=== PATIENT | male | born 1970 | race Caucasian/White ===

== ENCOUNTER 2017-10-05 14:26 | Emergency (ER) | payer SELFPAY ==
[~2017-10-05] VITALS: Ht 167.6 cm; Wt 77.4 kg
[2017-10-05 15:15] VITALS: BP 121/76
[2017-10-05 15:37] LABS: BASOPHILS % 0.4 % (0.0-2.0); EOSINOPHILS % 0.3 % (0.0-5.0); HEMATOCRIT. 48.6 % (42.0-52.0); HEMOGLOBIN. 16.9 g/dL (14.0-18.0); LYMPHOCYTES % 23.6 % (20.0-50.0); MEAN CORPUSCULAR HEMOGLOBIN 32.1 pg (28.0-32.0); MEAN CORPUSCULAR VOLUME 92.1 fL (80.0-94.0); MEAN PLATELET VOLUME 7.9 fl (7.4-10.4); MONOCYTES % 4.2 % (2.0-8.0); NEUTROPHILS % 71.5 % (40.0-76.0); PLATELET 215 x1000/uL (130-400); RED BLOOD CELL COUNT 5.28 mill/uL (4.7-6.1); RED CELL DISTRIBUTION WIDTH 13.4 % (11.6-14.6)
[2017-10-05 15:41] LABS: CHLORIDE 99 mEq/L (98-107)
[2017-10-05 15:50] LABS: CARBON DIOXIDE 24 mEq/L (21-32); ETHANOL BLOOD 292 mg/dL; PROTHROMBIN TIME 10.8 sec (9.4-11.6)
== END 2017-10-05 19:44 | disposition home or self-care (01) ==
LOC: ER 14:37
DX: T51.0X1A Toxic effect of ethanol, accidental (unintentional), initial encounter (principal); I69.351 Hemiplegia and hemiparesis following cerebral infarction affecting right dominant side; I10 Essential (primary) hypertension; E11.9 Type 2 diabetes mellitus without complications; Y90.8 Blood alcohol level of 240 mg/100 ml or more; R00.0 Tachycardia, unspecified; F17.210 Nicotine dependence, cigarettes, uncomplicated; Y92.89 Other specified places as the place of occurrence of the external cause
CPT/HCPCS: 36415; 70450; 71045; 80053; 85025; 85610; 93005; 99285; G0482